=== PATIENT | male | born 1995 | race Caucasian/White ===

== ENCOUNTER 2017-07-15 11:04 | Emergency (ER) | payer MEDICAID ==
[~2017-07-15] VITALS: Ht 180.3 cm; Wt 103.0 kg
[2017-07-15 11:07] VITALS: BP 130/84
[2017-07-15] MEDS ORDERED: DEXAMETHASONE 4 MG TABLET PO ONE (11:30)
[2017-07-15] MEDS ORDERED: DEXAMETHASONE 4 MG TABLET ONE (11:34)
== END 2017-07-15 11:43 | disposition home or self-care (01) ==
LOC: ED 11:30
DX: J03.90 Acute tonsillitis, unspecified (principal)
CPT/HCPCS: 99283